=== PATIENT | male | born 1955 | race Caucasian/White ===

== ENCOUNTER 2024-06-23 10:12 | Outpatient (AMB) | payer BC, SELFPAY ==
--- NOTE | 2024-06-23 10:18 | MHC.PC.OV ---
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: No Allergies No Known Allergies Allergy (Verified 06/23/24 10:18) Tobacco use date assessed: 06/23/24 Fall risk assessment: No Falls in past year Last assessed Fall Risk: 06/23/24 Dental Screening Dental Screen Date: 06/23/24 Did you have a dental visit in the last 12 months?: No Did you have a dental problem in the last 6 months where you did not have access to dental care?: No Was dental information given to patient?: Patient declined (goes to [place] when needed) HPI HPI Comments History of Present Illness Details This is a 68-year-old male with a past medical history of obesity, hypertension, hyperlipidemia and former tobacco use disorder presenting for follow up. He transferred from my panel at [facility] primary care. Hypertension-taking metoprolol succinate ER 25 mg (decreased dose due to prior bradycardia) and lisinopril 40 mg. No chest pain, shortness of breath. He quit smoking 15 years ago. He had an LDCT around the start of the pandemic. He was told he had lung nodules, but they did not require intervention. He is not interested in repeating a CAT scan though I did inform him that lung nodules can progress and become cancerous. He denies cough or hemoptysis. Gout-patient had frequent episodes until he was taken off hydrochlorothiazide. He keeps a prescription of prednisone 50 mg to have on hand for flares. He usually only needs it for 3 days. Impaired fasting glucose-most recent hemoglobin A1c 5.2% per my last note. Cologuard-07/2022. Defers COVID 19 booster. Patient says he is up-to-date with shingles, RSV and pneumonia vaccine. He plans to get the annual influenza vaccine when it is available. He is thinking about retiring in a year. ROS: Constitutional: No unexplained weight loss, fever, chills, fatigue or night sweats. Respiratory: No shortness of breath, cough or sputum production. Cardiovascular: No chest pain, chest pressure or chest discomfort. No palpitations or pedal edema. Gastrointestinal: No anorexia, nausea, vomiting or diarrhea. No abdominal pain or blood in stool. Neurologic: No headache, dizziness, syncope Endocrine: No cold or heat intolerance. No polyuria or polydipsia. Physical exam: Constitutional: Alert, in no distress. Head: Normocephalic. Eyes: Pupils are equal, round and reactive to light. Extraocular muscles intact. Neck: Supple, Full range of motion. No lymphadenopathy. Respiratory: Clear to auscultation. Cardiovascular: S1 S2 regular. No murmurs. No carotid bruits. Neurologic: No focal neurological deficits. Extremities: Warm and well perfused. No clubbing, cyanosis or edema. Psychiatric: Normal mood and affect [facility] Medical History (Updated 06/23/24 @ 11:37 by BRANDIE Phelps) Obesity, Class I, BMI 30.0-34.9 (see actual BMI) Lung nodules IFG (impaired fasting glucose) HTN (hypertension) Hyperlipidemia Gout Family History (Updated 06/23/24 @ 10:29 by Raegan Gallardo CMA) Mother Cancer of breast Father COPD (chronic obstructive pulmonary disease) Pulmonary disease Heart disease Brother Heart attack Sister Heart attack Brother No problems noted. 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 1. Little interest or pleasure in doing things: not at all 2. Feeling down, depressed, or hopeless: not at all 3. Trouble falling or staying asleep, or sleeping too much: not at all 4. Feeling tired or having little energy: not at all 5. Poor appetite or overeating: not at all 6. Feeling bad about yourself - or that you are a failure or have let yourself or your family down: not at all 7. Trouble concentrating on things, such as reading the newspaper or watching television: not at all 8. Moving or speaking so slowly that other people could have noticed. Or the opposite - being so fidgety or restless that you have been moving around a lot more than usual: not at all 9. Thoughts that you would be better off or of hurting yourself in some way: not at all Total score: 0 Depression Screening Interpretation: Negative Depression Screening Done: Yes 93103 - PHQ-9 Billing: Yes Source: Developed by Drs. Omar Bennett, Priscilla Mcintosh, Seven Toney and colleagues, with an educational marquise from [employer]. Thrive Questionnaire Date Thrive assessed: 06/23/24 I am a: Patient What is your living situation today?: I have a steady place to live Within the past 12 months, did the food you bought not last and you didn't have the money to get more?: Never true Within the past 12 months, did you worry whether your food would run out before you got money to buy more?: Never true Do you have trouble paying for medicines?: No Do you have trouble getting transportation to medical appointments?: No Do you have trouble paying your heating and electricity bill?: No Do you have trouble taking care of your child, family member or friend?: No Do you have trouble with day-to-day activities such as bathing, preparing meals, shopping, managing finances, etc.?: No Are you currently unemployed and looking for a job?: No Are you interested in more education?: No Please select the resources that you would like help with: None Currently or been in a relationship where the following occur: No concerns reported THRIVE Score: 0 AUDIT C Alcohol Use Questionnaire (AUDIT-C) 1. How often do you have a drink containing alcohol?: 4 or more times a week 2. How many drinks containing alcohol do you have on a typical day when you are drinking?: 5 or 6 3. How often do you have six or more drinks on one occasion?: Daily or almost daily Total Score: 10 RITU-7 AMB Questionnaire RITU-7 Date RITU - 7 assessed: 06/23/24 Feeling nervous, anxious, or on edge: 0 = Not at all Not being able to stop or control worryin = Not at all Worrying too much about different things: 0 = Not at all Trouble relaxin = Not at all Being so restless that it is hard to sit still: 0 = Not at all Becoming easily annoyed or irritable: 0 = Not at all Feeling afraid as if something awful might happen: 0 = Not at all Total RITU-7 score (0-4 normal; 5-9 mild; 10-14 moderate; 15-21 severe): 0 Source: Developed by Drs. Omar Bennett, Priscilla Mcintosh, Seven Toney and colleagues, with an educational marquise from [employer]. RITU-7 Assessment Billing RITU-7 Assessment Tool: RITU-7 Assessment 33406 Physical exam (Primary Care) Vital Signs: Last Vital Signs Temp 98.3 F 06/23/24 10:30 Pulse 60 06/23/24 10:30 Resp 16 06/23/24 10:30 BP 118/84 06/23/24 10:30 Pulse Ox 94 06/23/24 10:30 Oxygen Delivery Method Room Air 06/23/24 10:30 BMI result Body Mass Index 31.6 Tobacco/Smoking Status: Tobacco use Status Tobacco use date assessed 06/23/24 06/23/24 10:33 Patient Tobacco Use Status Former Tobacco user 06/23/24 10:33 e-Cigarette/Vaping Use Never Used 06/23/24 10:33 PHQ-9: PHQ-9 Score PHQ-9: Total score 0 06/23/24 10:58 Depression Screening Interpretation: Negative Thrive Assessment: Date of Thrive Assessment Date Thrive assessed 06/23/24 06/23/24 10:55 Currently or been in a relationship where the following occur: No concerns reported Assessment and Plan Assessment & Plan (1) HTN (hypertension): Code(s): I10 - Essential (primary) hypertension Qualifiers: Hypertension type: primary hypertension Qualified Code(s): I10 - Essential (primary) hypertension Plan: Continue current regimen. Recommended avoidance of caffeine and a low-sodium diet. Weight loss encouraged. (2) Hyperlipidemia: Code(s): E78.5 - Hyperlipidemia, unspecified Qualifiers: Hyperlipidemia type: pure hypercholesterolemia Qualified Code(s): E78.00 - Pure hypercholesterolemia, unspecified Plan: Check lipid profile. Continue simvastatin. (3) IFG (impaired fasting glucose): Code(s): R73.01 - Impaired fasting glucose Plan: Continue diet low in carbohydrates and sugars. Check hemoglobin A1c. (4) Gout: Code(s): M10.9 - Gout, unspecified Plan: Refilled prescription for gout. Side effects and administration reviewed. Given 6 tablets in the bottle (he only uses 3 per flare). Plan Follow up in 6 months for a physical exam. Orders: Orders Prostate Specific Antigen Scr Today E78.5 - Hyperlipidemia, unspecified, I10 - Essential (primary) hypertension, R73.01 - Impaired fasting glucose, Z12.5 - Encounter for screening for malignant neoplasm of prostate Comprehensive Met. Panel Today E78.5 - Hyperlipidemia, unspecified, I10 - Essential (primary) hypertension, R73.01 - Impaired fasting glucose Lipid Panel Today E78.5 - Hyperlipidemia, unspecified, I10 - Essential (primary) hypertension, R73.01 - Impaired fasting glucose Hemoglobin A1c Today E78.5 - Hyperlipidemia, unspecified, I10 - Essential (primary) hypertension, R73.01 - Impaired fasting glucose Complete Blood Count no Diff Today E78.5 - Hyperlipidemia, unspecified, I10 - Essential (primary) hypertension, R73.01 - Impaired fasting glucose Medications: New prednisone 50 mg PO DAILY 6 tabs 0RF Coding Level of Care Code Est Pt Level 4 (60779) Complex EM visit Add On G2211 Diagnoses Primary hypertension I10 Hypertension type: primary hypertension Pure hypercholesterolemia E78.00 Hyperlipidemia type: pure hypercholesterolemia IFG (impaired fasting glucose) R73.01 Gout M10.9 Additional Codes RITU-7 Assessment Billing - RITU-7 Assessment Tool: RITU-7 Assessment 98065 ([id number])
[2024-06-23 10:30] VITALS: BP 118/84; PULSE 60; RESP 16; TEMP 36.8; O2SAT 94; BMI 31.6
== END 2024-06-23 11:12 | disposition home or self-care (01) ==
PROVIDERS: PCP Physician Assistant Medical; Visit Provider Physician Assistant Medical
DX: I10 Essential (primary) hypertension (principal); E78.00 Pure hypercholesterolemia, unspecified; R73.01 Impaired fasting glucose; M10.9 Gout, unspecified
CPT/HCPCS: 99214

== ENCOUNTER 2024-06-27 07:53 | Outpatient (REF) | payer BC, SELFPAY ==
[2024-06-27 11:18] LABS: Hematocrit 45.9 % (42.0-52.0); Mean Corpuscular HGB Conc 34.9 g/dl (31.0-36.0); Mean Corpuscular Hemoglobin 32.2 pg (27.0-33.0); Mean Corpuscular Volume 92.4 fL (80.0-98.0); Mean Platelet Volume 10.4 fL (9.4-12.4); Platelet Count 134 X10*3/uL (160-400); Red Blood Count 4.97 X10*6/uL (4.60-5.80); Red Cell Distribution Width 12.2 % (11.0-16.0); White Blood Count 5.9 X10*3/uL (4.8-10.8)
[2024-06-27 11:30] LABS: Estimated Average Glucose 103 mg/dL; Hemoglobin A1c % 5.2 % (<6.0)
[2024-06-27 11:35] LABS: Alanine Aminotransferase 41 U/L (0-40); Albumin Level 4.3 g/dL (3.5-5.0); Alkaline Phosphatase 49 U/L (39-117); Anion Gap 11 (12-20); Aspartate Amino Transferase 32 U/L (5-37); Bilirubin Total 0.7 mg/dL (0.0-1.0); Blood Urea Nitrogen 17 mg/dL (9-16); Calcium 10.1 mg/dL (8.4-10.2); Carbon Dioxide 27 mmol/L (22-29); Chloride 107 mmol/L (96-108); Cholesterol 128 mg/dL (<200); Estimated Glomerular Filt Rate > 60; Glucose Random 96 mg/dL (60-115); HDL Cholesterol 45 mg/dL (>40); LDL Cholesterol Calculated 65 mg/dL (<100); Potassium 4.3 mmol/L (3.3-5.1); Sodium 141 mmol/L (135-145); Total Protein 6.5 g/dL (6.5-8.0); Triglycerides 90 mg/dL (<150)
[2024-06-27 11:52] LABS: Prostate Specific Antigen Scr 0.94 ng/mL (<0.05-4.0)
== END 2024-06-27 07:54 | disposition home or self-care (01) ==
LOC: HO.WFDLDS 07:53
PROVIDERS: Visit Provider Physician Assistant Medical
DX: I10 Essential (primary) hypertension (principal); E78.5 Hyperlipidemia, unspecified; R73.01 Impaired fasting glucose; Z12.5 Encounter for screening for malignant neoplasm of prostate
CPT/HCPCS: 36415; 80053; 80061; 83036; 84153; 85027

== ENCOUNTER 2024-12-22 07:59 | Outpatient (REF) | payer BC, SELFPAY ==
[2024-12-22 10:54] LABS: MANUAL DIFF FLAG NO
[2024-12-22 10:56] LABS: Basophils Absolute Auto 0.1 X10*3/uL (0.0-0.2); Basophils Percent Auto 0.8 % (0-2); Eosinophils Absolute Auto 0.2 X10*3/uL (0.0-0.4); Hemoglobin 15.9 g/dl (14.0-18.0); Imm Gran Abs Auto 0.03 X10*3/uL (0.00-0.03); Imm Gran Pct Auto 0.5 % (0.0-0.4); Lymphocytes Absolute Auto 1.7 X10*3/uL (1.2-4.9); Lymphocytes Percent Auto 27.8 % (20-40); Mean Corpuscular HGB Conc 35.3 g/dl (31.0-36.0); Mean Corpuscular Hemoglobin 32.2 pg (27.0-33.0); Mean Corpuscular Volume 91.1 fL (80.0-98.0); Mean Platelet Volume 10.5 fL (9.4-12.4); Monocytes Absolute Auto 0.4 X10*3/uL (0.1-1.2); Monocytes Percent Auto 7.4 % (2-11); Neutrophils Absolute Auto 3.6 x10*3/uL (2.0-8.3); Neutrophils Percent Auto 60.5 % (45-73); Platelet Count 149 X10*3/uL (160-400); Red Blood Count 4.94 X10*6/uL (4.60-5.80); Red Cell Distribution Width 12.4 % (11.0-16.0); White Blood Count 5.9 X10*3/uL (4.8-10.8)
[2024-12-22 11:12] LABS: Anion Gap 12 (12-20); Blood Urea Nitrogen 16 mg/dL (9-16); Calcium 9.7 mg/dL (8.4-10.2); Carbon Dioxide 25 mmol/L (22-29); Chloride 109 mmol/L (96-108); Cholesterol 134 mg/dL (<200); Estimated Glomerular Filt Rate > 60; Glucose Random 99 mg/dL (60-115); HDL Cholesterol 48 mg/dL (>40); LDL Cholesterol Calculated 66 mg/dL (<100); Potassium 4.7 mmol/L (3.3-5.1); Sodium 141 mmol/L (135-145); Triglycerides 103 mg/dL (<150)
[2024-12-22 11:15] LABS: Estimated Average Glucose 103 mg/dL; Hemoglobin A1C 137.0154 umol/L; Hemoglobin A1c % 5.2 % (<6.0); Total Hemoglobin (HGBA1C) 4121.3336 umol/L
== END 2024-12-22 08:00 | disposition home or self-care (01) ==
LOC: HO.WFDLDS 07:59
PROVIDERS: Visit Provider Physician Assistant Medical
DX: E11.9 Type 2 diabetes mellitus without complications (principal); E66.9 Obesity, unspecified; R91.8 Other nonspecific abnormal finding of lung field; E78.00 Pure hypercholesterolemia, unspecified; D69.6 Thrombocytopenia, unspecified; E78.5 Hyperlipidemia, unspecified
CPT/HCPCS: 36415; 80048; 80061; 83036; 85025

== ENCOUNTER 2024-12-29 15:59 | Outpatient (AMB) | payer BC, SELFPAY ==
--- NOTE | 2024-12-29 16:04 | A.OFFPC_ITS ---
Vital Signs 12/29/24 16:05 Height 5 ft 9.29 in Weight 217 lb BMI 31.8 BP 128/76 Blood Pressure Location Rt brachial Position Sitting Pulse 77 Pulse Source Pulse Oximeter Pulse Oximetry (%) 95 Oxygen Delivery Method Room Air Intake Visit Reasons: annual physical exam Allergies No Known Allergies Allergy (Verified 12/29/24 16:07) Tobacco use date assessed: 12/29/24 Fall risk assessment: No Falls in past year Last assessed Fall Risk: 12/29/24 Dental Screening Dental Screen Date: 12/29/24 Did you have a dental visit in the last 12 months?: No Did you have a dental problem in the last 6 months where you did not have access to dental care?: No Was dental information given to patient?: Patient has dentist HPI HPI Comments 2 History of Present Illness Details This is a 68-year-old male with a past medical history of obesity, hypertension, hyperlipidemia and former tobacco use disorder presenting for his physical exam. The patient's platelet count in June of 2024 was 134,000. On 12/22/2024 it is 149,000. No anemia. White blood cell count normal. Denies bleeding or bruising. Patient does note he took 2 brief courses of prednisone for gout around the holidays and in the fall. He does drink alcohol regularly but not excessively. No anticoagulation aside from daily baby aspirin which he has taken for years. Hypertension-taking metoprolol succinate ER 25 mg (decreased dose due to prior bradycardia) and lisinopril 40 mg. No chest pain, shortness of breath. His blood pressure is normal. He quit smoking 15 years ago. He had an LDCT around the start of the pandemic. He was told he had lung nodules, but they did not require intervention. He is not interested in repeating a CAT scan though I did inform him that lung nodules can progress and become cancerous. He denies cough, shortness of breath, chest pain and hemoptysis. Hyperlipidemia is treated with simvastatin 40 mg at bedtime. We reviewed that his cholesterol results are normal. Gout-patient had frequent episodes until he was taken off hydrochlorothiazide. He keeps a prescription of prednisone 50 mg to have on hand for flares. He usually only needs it for 3 days. Impaired fasting glucose-12/22/2024 hemoglobin A1c 5.2%. Cologuard-07/2022. Defers COVID 19 booster. Patient says he is up-to-date with shingles, RSV and pneumonia vaccine, influenza vaccine and tetanus vaccination. He is planning to retire this year. ROS: Constitutional: No unexplained weight loss, fever, chills, fatigue or night sweats. Eyes: No vision changes, blurry vision, double vision, eye pain, eye redness, eye discharge. ENT: No hearing loss, sneezing, congestion, runny nose or sore throat. Respiratory: No shortness of breath, cough or sputum production. Cardiovascular: No chest pain, chest pressure or chest discomfort. No palpitations or pedal edema. Gastrointestinal: No anorexia, nausea, vomiting or diarrhea. No abdominal pain or blood in stool. Genitourinary: No dysuria, hematuria, urinary frequency. Denies testicular pain, masses, swelling or pain in the groin. Neurologic: No headache, dizziness, syncope, unilateral weakness, ataxia, numbness or tingling in the extremities. Musculoskeletal: No muscle pain, joint swelling or joint pain. He has in termittent lower back pain. Hematologic/Lymphatics: No bleeding or bruising. No painful lymph nodes. Skin: No rash or itching. Endocrine: No cold or heat intolerance. No polyuria or polydipsia. Psychiatric: No depression or anxiety. No SI/HI. Physical exam: Constitutional: Alert, in no distress. Head: Normocephalic. Eyes: Pupils are equal, round and reactive to light. Extraocular muscles intact. Ear, Nose and Throat: Canals clear. TMs normal. Normal nasal mucosa. No nasal discharge. No oral lesions. Neck: Supple, Full range of motion. No lymphadenopathy. No palpable thyroid masses. Respiratory: Clear to auscultation. Cardiovascular: S1 S2 regular. No murmurs. No carotid bruits. Gastrointestinal: Abdomen soft, non-tender, non-distended. Normal bowel sounds. No palpable masses. Genitourinary: Deferred Neurologic: No focal neurological deficits. Symmetric patellar reflexes. Moves all extremities spontaneously. Sensation intact bilaterally. Skin: No rashes or lesions. Musculoskeletal: No gross deformities. Normal range of motion. Extremities: Warm and well perfused. No clubbing, cyanosis or edema. 3+ peripheral pulses bilaterally. Psychiatric: Normal mood and affect [facility] Medical History (Updated 12/29/24 @ 17:00 by BUSHRA Phelps Routine physical examination Low platelet count Obesity, Class I, BMI 30.0-34.9 (see actual BMI) Lung nodules IFG (impaired fasting glucose) HTN (hypertension) Hyperlipidemia Gout Family History (Reviewed 12/29/24 @ 16:07 by Yvette Schilling [facility]) Mother Cancer of breast Father COPD (chronic obstructive pulmonary disease) Pulmonary disease Heart disease Brother Heart attack Sister Heart attack Brother No problems noted. 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 1. Little interest or pleasure in doing things: not at all 2. Feeling down, depressed, or hopeless: not at all 3. Trouble falling or staying asleep, or sleeping too much: not at all 4. Feeling tired or having little energy: not at all 5. Poor appetite or overeating: not at all 6. Feeling bad about yourself - or that you are a failure or have let yourself or your family down: not at all 7. Trouble concentrating on things, such as reading the newspaper or watching television: not at all 8. Moving or speaking so slowly that other people could have noticed. Or the opposite - being so fidgety or restless that you have been moving around a lot more than usual: not at all 9. Thoughts that you would be better off or of hurting yourself in some way: not at all Total score: 0 Depression Screening Interpretation: Negative Depression Screening Done: Yes 57134 - PHQ-9 Billing: Yes Source: Developed by Drs. Omar Bennett, Priscilla Mcintosh, Seven Toney and colleagues, with an educational marquise from [employer]. Thrive Questionnaire Date Thrive assessed: 12/22/24 I am a: Patient What is your living situation today?: I have a steady place to live Within the past 12 months, did the food you bought not last and you didn't have the money to get more?: Never true Within the past 12 months, did you worry whether your food would run out before you got money to buy more?: Never true Do you have trouble paying for medicines?: No Do you have trouble getting transportation to medical appointments?: No Do you have trouble paying your heating and electricity bill?: No Do you have trouble taking care of your child, family member or friend?: No Do you have trouble with day-to-day activities such as bathing, preparing meals, shopping, managing finances, etc.?: No Are you currently unemployed and looking for a job?: No Are you interested in more education?: No Please select the resources that you would like help with: None Currently or been in a relationship where the following occur: No concerns reported THRIVE Score: 0 AUDIT C Alcohol Use Questionnaire (AUDIT-C) 1. How often do you have a drink containing alcohol?: 4 or more times a week 2. How many drinks containing alcohol do you have on a typical day when you are drinking?: 5 or 6 3. How often do you have six or more drinks on one occasion?: Less than monthly Total Score: 7 RITU-7 AMB Questionnaire RITU-7 Date RITU - 7 assessed: 12/29/24 Feeling nervous, anxious, or on edge: 0 = Not at all Not being able to stop or control worryin = Not at all Worrying too much about different things: 0 = Not at all Trouble relaxin = Not at all Being so restless that it is hard to sit still: 0 = Not at all Becoming easily annoyed or irritable: 0 = Not at all Feeling afraid as if something awful might happen: 0 = Not at all Total RITU-7 score (0-4 normal; 5-9 mild; 10-14 moderate; 15-21 severe): 0 Source: Developed by Drs. Omar Bennett, Priscilla Mcintosh, Seven Toney and colleagues, with an educational marquise from [employer] RITU-7 Assessment Billing RITU-7 Assessment Tool: RITU-7 Assessment 38889 Physical exam (Primary Care) Vital Signs: Last Vital Signs Pulse 77 12/29/24 16:05 BP 128/76 12/29/24 16:05 Pulse Ox 95 12/29/24 16:05 Oxygen Delivery Method Room Air 12/29/24 16:05 BMI result Body Mass Index 31.8 Tobacco/Smoking Status: Tobacco use Status Tobacco use date assessed 12/29/24 12/29/24 16:08 Patient Tobacco Use Status Former Tobacco user 12/29/24 16:08 e-Cigarette/Vaping Use Never Used 12/29/24 16:08 PHQ-9: PHQ-9 Score PHQ-9: Total score 0 12/29/24 16:08 Depression Screening Interpretation: Negative Thrive Assessment: Date of Thrive Assessment Date Thrive assessed 12/22/24 12/29/24 16:08 Currently or been in a relationship where the following occur: No concerns reported Coding Level of Care Code Est Pt Prev Care >65y(71117) Diagnoses Low platelet count D69.6 Routine physical examination Z00.00 Additional Codes RITU-7 Assessment Billing - RITU-7 Assessment Tool: RITU-7 Assessment 57256 ([id number]) PHQ-9 - 77646 - PHQ-9 Billing: Yes ([id number]) Assessment & Plan Assessment & Plan (1) Low platelet count: Code(s): D69.6 - Thrombocytopenia, unspecified Category: Medical Plan: This could be related to alcohol use. It is mild and improved. He will have additional labs done in 6 weeks and a telehealth appointment in 7 weeks to review results. (2) Routine physical examination: Code(s): Z00.00 - Encounter for general adult medical examination without abnormal findings Category: Medical Plan: Patient is seen today for a routine physical. As part of this visit we reviewed the following issues, which are considered and essential part of preventative health in this age group: - Screening for colon cancer - Discussed Prostate cancer screening - normal PSA level within the past year - Blood pressure screening - Cholesterol screening - Nutritional and exercise counseling - Counseling of injury prevention including fire prevention, smoke alarms and seat belt usage - Screening for depression - Prevention of and/or testing for infectious diseases - Education about skin cancer - Recommendations about immunizations - Recommendation of an eye exam - Screening for substance abuse Plan Follow up in 7 weeks to review labs. Orders printed for patient because he would like to have them done at [facility]. Medications: New prednisone 50 mg PO DAILY 6 tabs 0RF
[2024-12-29 16:05] VITALS: BP 128/76; PULSE 77; O2SAT 95; BMI 31.8
== END 2024-12-29 16:55 | disposition home or self-care (01) ==
PROVIDERS: PCP Physician Assistant Medical; Visit Provider Physician Assistant Medical
DX: D69.6 Thrombocytopenia, unspecified (principal); Z00.00 Encounter for general adult medical examination without abnormal findings

== ENCOUNTER → 2024-12-29 15:59 | Outpatient (BNVA) | payer BC, SELFPAY | PROVIDERS: PCP Physician Assistant Medical; Visit Provider Physician Assistant Medical | DX: Z00.01 Encounter for general adult medical examination with abnormal findings (principal); B35.1 Tinea unguium; I10 Essential (primary) hypertension; E78.5 Hyperlipidemia, unspecified; D69.6 Thrombocytopenia, unspecified | CPT/HCPCS: 96127 ==

== ENCOUNTER 2025-02-13 09:04 | Outpatient (REF) | payer BC, SELFPAY ==
[2025-02-13 11:38] LABS: MANUAL DIFF FLAG NO
[2025-02-13 11:42] LABS: Basophils Percent Auto 0.5 % (0-2); Eosinophils Absolute Auto 0.2 X10*3/uL (0.0-0.4); Eosinophils Percent Auto 3.2 % (0-4); Hematocrit 43.1 % (42.0-52.0); Hemoglobin 15.4 g/dl (14.0-18.0); Imm Gran Abs Auto 0.05 X10*3/uL (0.00-0.03); Imm Gran Pct Auto 0.7 % (0.0-0.4); Lymphocytes Absolute Auto 1.8 X10*3/uL (1.2-4.9); Lymphocytes Percent Auto 24.9 % (20-40); Mean Corpuscular HGB Conc 35.7 g/dl (31.0-36.0); Mean Corpuscular Hemoglobin 32.4 pg (27.0-33.0); Mean Corpuscular Volume 90.7 fL (80.0-98.0); Mean Platelet Volume 9.9 fL (9.4-12.4); Monocytes Absolute Auto 0.7 X10*3/uL (0.1-1.2); Neutrophils Absolute Auto 4.5 x10*3/uL (2.0-8.3); Neutrophils Percent Auto 60.7 % (45-73); Platelet Count 146 X10*3/uL (160-400); Red Blood Count 4.75 X10*6/uL (4.60-5.80); Red Cell Distribution Width 12.1 % (11.0-16.0); White Blood Count 7.4 X10*3/uL (4.8-10.8)
[2025-02-13 12:02] LABS: Alanine Aminotransferase 38 U/L (0-40); Albumin Level 4.2 g/dL (3.5-5.0); Alkaline Phosphatase 52 U/L (39-117); Aspartate Amino Transferase 36 U/L (5-37); Bilirubin Direct 0.3 mg/dL (0.0-0.5); Bilirubin Total 0.8 mg/dL (0.0-1.0); Iron 81 mcg/dL (45-160); Percent Iron Saturation 32 % (15-50); Total Iron Binding Capacity 254 mcg/dL (228-428); Total Protein 6.5 g/dL (6.5-8.0); Unsaturated Iron Binding 173 ug/dL
[2025-02-13 12:23] LABS: Ferritin 122 ng/mL (20-250); TSH reflex Free T4 2.37 uIU/mL (0.32-4.0)
== END 2025-02-13 09:05 | disposition home or self-care (01) ==
LOC: HO.WFDLDS 09:04
PROVIDERS: Visit Provider Physician Assistant Medical
DX: D69.6 Thrombocytopenia, unspecified (principal); Z13.29 Encounter for screening for other suspected endocrine disorder
CPT/HCPCS: 36415; 80076; 82728; 83540; 84443; 85025

== ENCOUNTER 2025-03-02 14:49 | Outpatient (AMB) | payer BC, SELFPAY ==
--- NOTE | 2025-03-02 14:53 | MHC.PC.OV ---
Vital Signs 03/02/25 14:59 Height 5 ft 9 in Weight 206 lb 2 oz BMI 30.4 BP 122/78 Blood Pressure Location Lt brachial Position Sitting Pulse 87 Pulse Source Pulse Oximeter Temp 97.9 F Temp Source Temporal Artery Scan Pulse Oximetry (%) 95 Oxygen Delivery Method Room Air Intake Visit Reasons: review lab results Intake Note: Enrike presents in the office today for a review of his latest lab results. Allergies No Known Allergies Allergy (Verified 03/02/25 14:54) Tobacco use date assessed: 03/02/25 Fall risk assessment: No Falls in past year Last assessed Fall Risk: 03/02/25 Dental Screening Dental Screen Date: 03/02/25 Did you have a dental visit in the last 12 months?: No Did you have a dental problem in the last 6 months where you did not have access to dental care?: No Was dental information given to patient?: Patient declined HPI HPI Comments History of Present Illness Details This is a 69-year-old male with a past medical history of obesity, hypertension, hyperlipidemia, decreased platelets and former tobacco use disorder presenting for his physical exam. The patient's platelet count in June of 2024 was 134,000. On 12/22/2024 it was 149,000 and 146,000 02/13/25. No anemia. No iron-deficiency, B12 deficiency or hypo/hyperthyroidism. White blood cell count normal. Denies bleeding or bruising. No anticoagulation aside from daily baby aspirin which he has taken for years. Patient does admit to drinking 5-6 beers daily. LFTs normal. He has been referred to Hematology, and he has a consult scheduled. Hypertension-taking metoprolol succinate ER 25 mg (decreased dose due to prior bradycardia) and lisinopril 40 mg. No chest pain, shortness of breath. His blood pressure is normal. He quit smoking 15 years ago. He had an LDCT around the start of the pandemic. He was told he had lung nodules, but they did not require intervention. He is not interested in repeating a CAT scan though I did inform him that lung nodules can progress and become cancerous. He denies cough, shortness of breath, chest pain and hemoptysis. Hyperlipidemia is treated with simvastatin 40 mg at bedtime. Gout-patient had frequent episodes until he was taken off hydrochlorothiazide. He keeps a prescription of prednisone 50 mg to have on hand for flares. He usually only needs it for 3 days. Impaired fasting glucose-12/22/2024 hemoglobin A1c 5.2%. Cologuard-07/2022. He is retiring now. He has a trip to [place] planned with his to celebrate. ROS: Constitutional: No unexplained weight loss, fever, chills, fatigue or night sweats. Eyes: No vision changes, blurry vision, double vision, eye pain, eye redness, eye discharge. Respiratory: No shortness of breath, cough or sputum production. Cardiovascular: No chest pain, chest pressure or chest discomfort. No palpitations or pedal edema. Gastrointestinal: No anorexia, nausea, vomiting or diarrhea. No abdominal pain or blood in stool. Hematologic/Lymphatics: No bleeding or bruising. No painful lymph nodes. Skin: No rash or itching. Psychiatric: No depression or anxiety. No SI/HI. Physical exam: Constitutional: Alert, in no distress. Neck: Supple, Full range of motion. No lymphadenopathy. No palpable thyroid masses. Respiratory: Clear to auscultation. Cardiovascular: S1 S2 regular. No murmurs. Gastrointestinal: Abdomen soft, non-tender, non-distended. Normal bowel sounds. No palpable masses. Skin: No rashes Extremities: Warm and well perfused. No clubbing, cyanosis or edema. Psychiatric: Normal mood and affect [facility] Medical History (Updated 12/29/24 @ 17:00 by BRANDIE Phelps) Routine physical examination Low platelet count Obesity, Class I, BMI 30.0-34.9 (see actual BMI) Lung nodules IFG (impaired fasting glucose) HTN (hypertension) Hyperlipidemia Gout Family History Mother Cancer of breast Father COPD (chronic obstructive pulmonary disease) Pulmonary disease Heart disease Brother Heart attack Sister Heart attack Brother No problems noted. 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 1. Little interest or pleasure in doing things: not at all 2. Feeling down, depressed, or hopeless: not at all 3. Trouble falling or staying asleep, or sleeping too much: not at all 4. Feeling tired or having little energy: not at all 5. Poor appetite or overeating: not at all 7. Trouble concentrating on things, such as reading the newspaper or watching television: not at all 8. Moving or speaking so slowly that other people could have noticed. Or the opposite - being so fidgety or restless that you have been moving around a lot more than usual: not at all 9. Thoughts that you would be better off or of hurting yourself in some way: not at all Depression Screening Interpretation: Negative Depression Screening Done: Yes 11955 - PHQ-9 Billing: Patient declined-do not bill Source: Developed by Drs. Omar Bennett, Priscilla Mcintosh, Seven Toney and colleagues, with an educational marquise from [employer]. Thrive Questionnaire Date Thrive assessed: 03/02/25 I am a: Patient What is your living situation today?: I have a steady place to live Within the past 12 months, did the food you bought not last and you didn't have the money to get more?: Never true Within the past 12 months, did you worry whether your food would run out before you got money to buy more?: Never true Do you have trouble paying for medicines?: No Do you have trouble getting transportation to medical appointments?: No Do you have trouble paying your heating and electricity bill?: No Do you have trouble taking care of your child, family member or friend?: No Do you have trouble with day-to-day activities such as bathing, preparing meals, shopping, managing finances, etc.?: No Are you currently unemployed and looking for a job?: No Are you interested in more education?: No Please select the resources that you would like help with: None Currently or been in a relationship where the following occur: No concerns reported THRIVE Score: 0 AUDIT C Alcohol Use Questionnaire (AUDIT-C) 1. How often do you have a drink containing alcohol?: 2-3 times a week 2. How many drinks containing alcohol do you have on a typical day when you are drinking?: 1 or 2 3. How often do you have six or more drinks on one occasion?: Never Total Score: 3 Score Reviewed/Action Taken: No RITU-7 AMB Questionnaire RITU-7 Date RITU - 7 assessed: 03/02/25 Feeling nervous, anxious, or on edge: 1 = Several days Not being able to stop or control worryin = Not at all Worrying too much about different things: 1 = Several days Trouble relaxin = Not at all Being so restless that it is hard to sit still: 0 = Not at all Becoming easily annoyed or irritable: 0 = Not at all Feeling afraid as if something awful might happen: 0 = Not at all Total RITU-7 score (0-4 normal; 5-9 mild; 10-14 moderate; 15-21 severe): 2 Source: Developed by Drs. Omar Bennett, Priscilla Mcintosh, Seven Toney and colleagues, with an educational marquise from [employer]. RITU-7 Assessment Billing RITU-7 Assessment Tool: RITU-7 Assessment 21951 ACT Questionnaire In the past 4 weeks, how much of the time did your asthma keep you from getting as much done at work, school or at home?: None of the time Score: 5 Physical exam (Primary Care) Vital Signs: Last Vital Signs Temp 97.9 F 03/02/25 14:59 Pulse 87 03/02/25 14:59 BP 122/78 03/02/25 14:59 Pulse Ox 95 03/02/25 14:59 Oxygen Delivery Method Room Air 03/02/25 14:59 BMI result Body Mass Index 30.4 Tobacco/Smoking Status: Tobacco use Status Tobacco use date assessed 03/02/25 03/02/25 14:56 Patient Tobacco Use Status Former Tobacco user 03/02/25 14:56 e-Cigarette/Vaping Use Never Used 03/02/25 14:56 Depression Screening Interpretation: Negative Thrive Assessment: Date of Thrive Assessment Date Thrive assessed 03/02/25 03/02/25 15:02 Currently or been in a relationship where the following occur: No concerns reported Coding Level of Care Code Est Pt Level 4 (05773) Complex EM visit Add On G2211 Diagnoses Primary hypertension I10 Hypertension type: primary hypertension Pure hypercholesterolemia E78.00 Hyperlipidemia type: pure hypercholesterolemia IFG (impaired fasting glucose) R73.01 Low platelet count D69.6 Additional Codes RITU-7 Assessment Billing - RITU-7 Assessment Tool: RITU-7 Assessment 36293 ([id number]) Assessment & Plan Assessment & Plan (1) HTN (hypertension): Code(s): I10 - Essential (primary) hypertension Category: Medical Qualifiers: Hypertension type: primary hypertension Qualified Code(s): I10 - Essential (primary) hypertension Plan: Well-controlled. Recommended low-sodium diet and avoidance of caffeine. Continue current regimen. (2) Hyperlipidemia: Code(s): E78.5 - Hyperlipidemia, unspecified Category: Medical Qualifiers: Hyperlipidemia type: pure hypercholesterolemia Qualified Code(s): E78.00 - Pure hypercholesterolemia, unspecified Plan: Mediterranean diet recommended. Congratulated on interval weight loss. Patient says he has been eating healthier and working more. Continue statin. (3) IFG (impaired fasting glucose): Code(s): R73.01 - Impaired fasting glucose Category: Medical Plan: Monitor hemoglobin A1c. Follow low carbohydrate, low sugar diet. Decrease alcohol consumption. (4) Low platelet count: Code(s): D69.6 - Thrombocytopenia, unspecified Category: Medical Plan: I suspect mild thrombocytopenia might be secondary to alcohol consumption and recommended that he cut back. He does not plan to do so at this time but he will think about it. He will keep the appointment with Hematology to be cautious. Plan Follow up in 6 months for a physical exam. Medications: Refilled ciclopirox 8% topically; Apply to affected toenail(s) and adjacent skin once daily. Remove with alcohol every 7 days; continue therapy until nail clearance (maximum duration: 48 weeks) 4 weeks 6.6 mL 10RF
[2025-03-02 14:59] VITALS: BP 122/78; PULSE 87; TEMP 36.6; O2SAT 95; BMI 30.4
== END 2025-03-02 15:29 | disposition home or self-care (01) ==
LOC: HO.HMCFM 14:50
PROVIDERS: PCP Physician Assistant Medical; Visit Provider Physician Assistant Medical
DX: I10 Essential (primary) hypertension (principal); E78.00 Pure hypercholesterolemia, unspecified; R73.01 Impaired fasting glucose; D69.6 Thrombocytopenia, unspecified

== ENCOUNTER → 2025-03-02 14:49 | Outpatient (BNVA) | payer BC, SELFPAY | PROVIDERS: PCP Physician Assistant Medical; Visit Provider Physician Assistant Medical | DX: I10 Essential (primary) hypertension (principal); E78.00 Pure hypercholesterolemia, unspecified; R73.01 Impaired fasting glucose; D69.6 Thrombocytopenia, unspecified; Z79.899 Other long term (current) drug therapy | CPT/HCPCS: 96127 ==

== ENCOUNTER → 2025-04-01 08:59 | Outpatient (BNV) | payer BC, SELFPAY | PROVIDERS: PCP Physician Assistant Medical; Referring Provider Physician Assistant Medical; Visit Provider Internal Medicine | DX: D69.6 Thrombocytopenia, unspecified (principal) | CPT/HCPCS: 99204 ==

== ENCOUNTER 2025-04-03 07:15 | Outpatient (REF) | payer MEDICARE, SELFPAY | END 2025-04-03 07:16 | disposition home or self-care (01) | LOC: HO.LNP 07:15 | PROVIDERS: Visit Provider Internal Medicine | DX: D69.6 Thrombocytopenia, unspecified (principal) | CPT/HCPCS: 87338 ==

== ENCOUNTER 2025-04-10 08:41 | Outpatient (REF) | payer MEDICARE, SELFPAY ==
--- NOTE | ~2025-04-10 | US_ITS ---
EXAMINATION: US ABDOMEN HISTORY: ? Hepatosplenomegaly TECHNIQUE: Real-time grayscale ultrasound imaging of the abdomen was performed and images were reviewed. COMPARISON: There are no prior studies available for comparison. FINDINGS: Liver: The right lobe of the liver measures 15.1 cm in size. The left lobe of the liver is poorly visualized. The liver demonstrates increased echotexture, consistent with steatosis. No focal mass or intrahepatic biliary ductal dilatation is identified. There is normal hepatopedal flow in the portal vein. Gallbladder and biliary tree: The gallbladder is unremarkable, without evidence of calculi, wall thickening, or pericholecystic fluid. There is no sonographic Petersen sign. The common bile duct is normal in caliber measuring 3 mm. Kidneys: The right kidney measures 12.4 cm in length. The left kidney measures 11.7 cm in length. The kidneys are unremarkable, without evidence of masses, hydronephrosis, or calculi. Pancreas: The pancreas is obscured by bowel gas. Spleen: The spleen is normal in size and contour, measuring 11.8 cm in length. Abdominal aorta and inferior vena cava: The visualized portions of the abdominal aorta and inferior vena cava are normal in caliber. There is no free fluid in the abdomen. US/US abdomen complete IMPRESSION: Hepatic steatosis. The left lobe of the liver is poorly visualized due to bowel gas. The pancreas is also not visualized. Electronically signed by: Omar Bassett MD 04/10/2025 10:44 AM EDT
== END 2025-04-10 08:42 | disposition home or self-care (01) ==
LOC: HO.US 08:41
PROVIDERS: PCP Physician Assistant Medical; Visit Provider Internal Medicine
DX: D69.6 Thrombocytopenia, unspecified (principal)
CPT/HCPCS: 76700

== ENCOUNTER → 2025-04-10 08:46 | Outpatient (BNV) | payer MEDICARE, SELFPAY | PROVIDERS: PCP Physician Assistant Medical; Visit Provider Radiology Diagnostic Radiology | DX: K76.0 Fatty (change of) liver, not elsewhere classified (principal) | CPT/HCPCS: 76700 ==